=== PATIENT | female | born 1970 | race Hispanic/Latino ===

== ENCOUNTER 2019-03-20 05:33 | Outpatient (CLI) | payer BC ==
[~2019-03-20] VITALS: Ht 157.5 cm; Wt 65.8 kg
== END 2019-03-20 11:04 | disposition home or self-care (01) ==
LOC: PREOP 05:33
PROVIDERS: ATTEND Surgery
DX: Z01.818 Encounter for other preprocedural examination (principal)

== ENCOUNTER 2019-03-27 10:49 | Day surgery (SDC) | payer BC, OTHER ==
[~2019-03-27] VITALS: Ht 157.5 cm; Wt 65.8 kg
--- OUTSIDE RECORDS SUMMARY | 2019-03-27 10:52 | XMS REPORT ---
Author Author Migration, Doctor Organization [facility] Address Unknown Phone Unavailable Care Team Providers Care Placement Manager Name Role Phone Migration, Doctor Unavailable Unavailable PROBLEMS Type Condition ICD9-CM Code VFU17-ST Code Onset Dates Condition Status SNOMED Code Problem Screening for malignant neoplasm of the cervix V76.2 Active 350055229 Problem Influenza with other respiratory manifestations 487.1 Active 1322475 Problem Benign paroxysmal positional vertigo 386.11 Active 454742385 Problem Unspecified breast screening V76.10 Active 511479540 Problem Special screening examination, human papillomavirus [HPV] V73.81 Active 442077817 Problem Fever, unspecified 780.60 Active 723560221 Problem Mastodynia 611.71 Active 36241610 ALLERGIES No Information ENCOUNTERS Encounter Location Date Diagnosis [place] [id number] [place] [phone] Jan, [place] [id number] [place] [phone] Jan, [place] [id number] [place] [phone] Jun, [place] [id number] [place] [phone] Apr, [place] [id number] [place] [phone] Apr, [place] [id number] [place] [phone] Apr, [place] [id number] [place] [phone] Oct, IMMUNIZATIONS No Known Immunizations SOCIAL HISTORY Never Assessed REASON FOR VISIT EMR-[facility] PLAN OF CARE VITAL SIGNS MEDICATIONS Medication Instructions Dosage Frequency Start Date End Date Duration Status Tamiflu 75 mg 1 capsule by Oral route 2 times per day for 5 day(s) Oct, Active meclizine 25 mg 1 tablet by Oral route 4 times per day PRN 30 Jun, 2013 Active RESULTS No Results PROCEDURES No Known procedures INSTRUCTIONS MEDICATIONS ADMINISTERED No Known Medications
--- OUTSIDE RECORDS SUMMARY | 2019-03-27 10:52 | XMS REPORT ---
Author Author Migration, Doctor Organization [facility] Address Unknown Phone Unavailable Care Team Providers Care Wax Ball Molder Name Role Phone Migration, Doctor Unavailable Unavailable PROBLEMS Type Condition ICD9-CM Code PQS12-BH Code Onset Dates Condition Status SNOMED Code Problem Screening for malignant neoplasm of the cervix V76.2 Active 294621874 Problem Influenza with other respiratory manifestations 487.1 Active 0348764 Problem Benign paroxysmal positional vertigo 386.11 Active 886131687 Problem Unspecified breast screening V76.10 Active 662290408 Problem Special screening examination, human papillomavirus [HPV] V73.81 Active 501349963 Problem Fever, unspecified 780.60 Active 935432047 Problem Mastodynia 611.71 Active [id number] ALLERGIES No Information ENCOUNTERS Encounter Location Date Diagnosis [place] [id number] [place] [phone] Jan, [place] [id number] [place] [phone] Jan, [place] [id number] [place] [phone] Jun, [facility] [id number] [place] [phone] Apr, [facility] [address] [place] [phone] Apr, [facility] [id number] [place] [phone] Apr, [facility] [id number] [place] [phone] Oct, IMMUNIZATIONS No Known Immunizations SOCIAL HISTORY Never Assessed REASON FOR VISIT EMR-[facility] [place] PLAN OF CARE VITAL SIGNS MEDICATIONS Unknown Medications RESULTS No Results PROCEDURES No Known procedures INSTRUCTIONS MEDICATIONS ADMINISTERED No Known Medications
[2019-03-27] MEDS ORDERED: NS IV 500 ML 500 ML ONE (11:05)
[2019-03-27] MEDS ORDERED: NS IV 500 ML 500 ML IV PRN (11:13)
[2019-03-27] MEDS ORDERED: fentaNYL INJECTION 100 MCG/2 ML AMP IVP ONE (11:15)
[2019-03-27] MEDS ORDERED: LIDOCAINE JELLY 2% 6 ML SYRINGE MM PRN (11:15)
[2019-03-27] MEDS ORDERED: MIDAZOLAM 2 MG/2 ML (VERSED) VIAL IVP ONE (11:15)
[2019-03-27 11:32] VITALS: BP 96/64
--- NOTE | 2019-03-27 14:00 | Conscious Sedation/ASA ---
Conscious Sedation Pre-Proced Time 13:30 ASA Score 2 For ASA 3 and 4: Consider anesthesia and medical clearance. Also, for patients with a history of failed moderate sedation consider anesthesia. Airway Lungs Heart ASA score ASA 1: a normal healthy patient ASA 2: a patient with a mild systemic disease (mid diabetes, controlled hypertension, obesity ASA 3: a patient with a severe systemic disease that limits activity (angina, COPD, prior Myocardial infarction) ASA 4: a patient with an incapacitating disease that is a constant threat to life (CHF, renal failure) ASA 5: a moribund patient not expected to survive 24 hrs. (ruptured aneurysm) ASA 6: a declared brain- patient whose organs are being harvested. For emergent operations, add the letter E after the classification Mallampati Classification Grade 2 Sedation Plan Analgesia, Amnesia, Plan communicated to team members, Discussed options with patient/fam, Discussed risks with patient/fam The patient is an appropriate candidate to undergo the planned procedure, sedation, and anesthesia. The patient immediately re-assessed prior to indication. ANISH KAY MD March 27, 2019 14:00
--- NOTE | 2019-03-27 14:01 | Progress Note-Pre Operative ---
Pre-Operative Progress Note H&P Reviewed The H&P was reviewed, patient examined and no changes noted. Date Seen by Provider: March 27, 2019 Time Seen by Provider: 13:30 Date H&P Reviewed: March 27, 2019 Time H&P Reviewed: 13:30 Pre-Operative Diagnosis: screening o ANISH KAY MD March 27, 2019 14:01
--- NOTE | 2019-03-27 14:03 | Discharge Inst-Surgical ---
D/C Lap Instructions-RAHUL Follow Up Activity as tolerated High Fiber Diet 25g or more per day Avoid Alcohol, Caffeine, Spicy [place] and Acid foods. Drink 64 fluid oz or more of fluids per day. Symptoms to Report: Fever over 101 degree F, Nausea/Vomiting If any problems/questions: Contact your physician or go to Emergency Room ANISH KAY MD March 27, 2019 14:03
[2019-03-27] MEDS ORDERED: MIDAZOLAM 2 MG/2 ML (VERSED) VIAL ONE ×4 (14:14→14:15)
[2019-03-27] MEDS ORDERED: HYDROcodone/APAP 5 MG/325 MG (LORTAB) TAB PO PRN (14:15)
[2019-03-27] MEDS ORDERED: LIDOCAINE JELLY 2% 6 ML SYRINGE ONE (14:15)
[2019-03-27] MEDS ORDERED: ONDANSETRON 4 MG/2 ML (SDV) Z0FRAN IVP PRN (14:15)
[2019-03-27] MEDS ORDERED: ACETAMINOPHEN 325 MG TABLET PO PRN (14:15)
[2019-03-27] MEDS ORDERED: morphine INJ 10 MG/ML 1ML (SYR OR VIAL) IVP PRN (14:15)
[2019-03-27] MEDS ORDERED: fentaNYL INJECTION 100 MCG/2 ML AMP ONE ×2 (14:15→14:53)
--- NOTE | 2019-03-27 15:14 | Progress Note-Post Operative ---
Post-Operative Progess Note Surgeon (s)/Fabric Finisher (s) Surgeon ANISH KAY MD Fabric Finisher: none Pre-Operative Diagnosis screening colo Post-Operative Diagnosis normal colon and rectum Procedure & Operative Findings Date of Procedure 03/27/19 Procedure Performed/Findings colonoscopy Anesthesia Type cs Estimated Blood Loss Estimated blood loss (mL): minimal Specimens/Packing Specimens Removed none ANISH KAY MD March 27, 2019 15:14
[2019-03-27 15:20] VITALS: BP 95/57
[2019-03-27 15:45] VITALS: BP 114/62
[2019-03-27 16:00] VITALS: BP 114/62
--- NOTE | 2019-03-27 21:48 | OPERATIVE REPORT ---
DATE OF SERVICE: 03/27/2019 ATTENDING PRIMARY CARE PHYSICIAN: Dr. Yossi Herrera. PREOPERATIVE DIAGNOSIS: Screening colonoscopy. POSTOPERATIVE DIAGNOSIS: Normal colon and rectum. PROCEDURE PERFORMED: Colonoscopy. SURGEON: Anish Kay MD. ANESTHESIA: Conscious sedation. ESTIMATED BLOOD LOSS: Minimal. FINDINGS: Normal colon and rectum. DISPOSITION: The patient tolerated the procedure well. INDICATIONS: The patient is a 48-year-old female in need of a screening colonoscopy. She has not had a colonoscopy up to this point in her life. She states she is doing well and tolerating a regular diet and having normal bowel movements with no major issues with diarrhea nor constipation as well as no red blood per rectum nor any dark tarry stools. She also does not report any family history of colon cancer. DESCRIPTION OF PROCEDURE: The patient was brought to the endoscopy suite, laid in the left lateral decubitus position. After adequate IV pain and sedative medications and conscious sedation anesthesia, a digital rectal examination was performed. No significant hemorrhoids identified. Normal sphincter tone was felt and there were no palpable masses. The endoscope was then intubated to the anus and rectum gently insufflated. The endoscope was then advanced to the valves of [place] in the rectum with no polyps or any neoplasms identified. Endoscope was then advanced to the sigmoid colon where no diverticulosis identified. The scope was then advanced to the descending, transverse and ascending colon to the cecum, which were normal. The endoscope was then slowly withdrawn while taking a second look and suctioning of residual air with no additional findings. The patient tolerated the procedure well. We will recommend a high fiber diet with at least 25 grams of fiber per day as well as at least 64 fluid ounces of water to promote soft stools on a daily basis. She does not need another colonoscopy for another 10 years. Job ID: [id number] DocumentID: [id number] Dictated Date: 03/27/2019 15:07:01 Desulfurizer Machine Date: 03/27/2019 21:47:30 Dictated By: ANISH KAY MD
== END 2019-03-27 16:07 | disposition home or self-care (01) ==
LOC: ENDO 10:49
PROVIDERS: ATTEND Surgery
DX: Z12.11 Encounter for screening for malignant neoplasm of colon (principal)

== ENCOUNTER → 2020-01-08 | Outpatient (CLI) | payer BC, OTHER ==
--- NOTE | 2020-01-11 10:12 | Diagnostic Imaging Report ---
INDICATION: Routine screening. Comparison is made with prior mammogram 10/30/2013. 2-D and 3-D bilateral screening mammography was performed with CAD. The current study was also evaluated with a Computer Aided Detection (CAD) system. 3-D tomosynthesis was also performed and reviewed. Both breasts are heterogeneously dense, limiting the sensitivity of mammography. No mass or malignant appearing microcalcifications are seen. Axillae are unremarkable. IMPRESSION: No mammographic features suspicious for malignancy are identified. ACR BI-RADS Category 1: Negative. Result letter will be mailed to the patient. Note: At least 10% of breast cancer is not imaged by mammography. Dictated by: Dictated on workstation # [id number]
== END ==
LOC: RAD 15:32
PROVIDERS: ATTEND Family Medicine
DX: Z12.31 Encounter for screening mammogram for malignant neoplasm of breast (principal)
CPT/HCPCS: 77067

== ENCOUNTER → 2021-01-09 | Outpatient (CLI) | payer BC, OTHER ==
--- NOTE | 2021-01-10 12:25 | Diagnostic Imaging Report ---
INDICATION: Routine screening. Comparison is made with prior mammogram 01/08/2020. 2-D and 3-D bilateral screening mammography was performed with CAD. Both breasts are heterogeneously dense, limiting the sensitivity of mammography. No mass or malignant appearing microcalcifications are seen. Axillae are unremarkable. IMPRESSION: BI-RADS Category 1 No mammographic features suspicious for malignancy are identified. ACR BI-RADS Category 1: Negative. Result letter will be mailed to the patient. Note: At least 10% of breast cancer is not imaged by mammography. Dictated by: Dictated on workstation # [id number]
== END ==
LOC: RAD 15:45
PROVIDERS: ATTEND Family Medicine
DX: Z12.31 Encounter for screening mammogram for malignant neoplasm of breast (principal)
CPT/HCPCS: 77063; 77067

== ENCOUNTER → 2022-05-31 | Outpatient (CLI) | payer BC ==
--- NOTE | 2022-05-31 09:06 | Diagnostic Imaging Report ---
INDICATION: Routine screening. COMPARISON: 01/09/2021 and 01/08/2020. TECHNIQUE: 2D and 3D bilateral screening mammography was performed with CAD. FINDINGS: Both breasts are heterogeneously dense, limiting the sensitivity of mammography. The parenchymal pattern is stable. No dominant mass or malignant-appearing microcalcifications are seen. The axillae are unremarkable. IMPRESSION: No mammographic features suspicious for malignancy are identified. ACR BI-RADS Category 1: Negative. Result letter will be mailed to the patient. Note: At least 10% of breast cancer is not imaged by mammography. Dictated by: Dictated on workstation # [id number]
== END ==
LOC: RAD 07:42
PROVIDERS: ATTEND Family Medicine
DX: Z12.31 Encounter for screening mammogram for malignant neoplasm of breast (principal)
CPT/HCPCS: 77063; 77067